=== PATIENT | male | born 1975 | race Caucasian/White ===

== ENCOUNTER 2020-07-02 09:07 | Inpatient (IN) | payer BC ==
[~2020-07-02] VITALS: Ht 182.9 cm; Wt 146.8 kg
[2020-07-02] VITALS (10 sets, daily range): BP systolic 111–132; BP diastolic 82–94
[2020-07-02 09:28] LABS: BASOPHILS # (AUTO) 0.2 X10'3 (0-0.2); BASOPHILS % (AUTO) 1.3 % (0-1); EOSINOPHILS # (AUTO) 0.1 X10'3 (0-0.9); EOSINOPHILS % (AUTO) 0.7 % (0-6); HEMATOCRIT 50.1 % (42.0-52.0); HEMOGLOBIN 17.4 g/dl (14.0-17.9); LYMPHOCYTES # (AUTO) 2.8 X10'3 (1.1-4.8); LYMPHOCYTES % (AUTO) 17.4 % (21-51); MEAN CORPUSCULAR HEMOGLOBIN 30.3 PG (27.0-31.0); MEAN CORPUSCULAR HGB CONC 34.8 g/dL (33.0-36.5); MONOCYTES # (AUTO) 1.6 X10'3 (0-0.9); MONOCYTES % (AUTO) 9.6 % (2-12); NEUTROPHILS # (AUTO) 11.6 X10'3 (1.8-7.7); PLATELET COUNT 207 X10'3 (140-440); RED BLOOD COUNT 5.76 X10'6 (4.70-6.10); RED CELL DISTRIBUTION WIDTH 13.3 % (11.5-14.5); WHITE BLOOD COUNT 16.3 X10'3 (4.5-11.0)
[2020-07-02] MEDS ORDERED: normal saline 1000ML IV soln IVB ONE (09:35)
[2020-07-02 09:43] LABS: ALANINE AMINOTRANSFERASE 34 U/L (12-78); ALBUMIN 3.9 G/DL (3.4-5.0); ALKALINE PHOSPHATASE 109 IU/L (46-116); ANION GAP 13 (8-16); ASPARTATE AMINO TRANSFERASE 16 U/L (10-37); BILIRUBIN,TOTAL 1.4 MG/DL (0.1-1.0); BLOOD UREA NITROGEN 16 MG/DL (7-18); BUN/CREATININE RATIO 14.5 (5.4-32.0); CALCIUM 8.9 MG/DL (8.5-10.1); CHLORIDE 98 MMOL/L (99-107); GLUCOSE 413 MG/DL (70-104); POTASSIUM 4.2 MMOL/L (3.5-5.1); SODIUM 134 MMOL/L (135-145); TOTAL CARBON DIOXIDE 23.1 MMOL/L (24-32); eGFR 73 ML/MIN
[2020-07-02 09:52] LABS: ETHANOL < 0.010 GM/DL (0.0-0.010); MAGNESIUM 1.9 MG/DL (1.5-2.4)
[2020-07-02] MEDS ORDERED: iohexol 350MG/ML 100ml bottle IV ONE (09:53)
[2020-07-02 09:57] LABS: D-DIMER 2.73 MG/L FEU (0-0.50); PARTIAL THROMBOPLASTIN TIME 25 SECONDS (22-32)
--- NOTE | 2020-07-02 10:41 | NUR ---
patient to ct.
--- NOTE | 2020-07-02 10:48 | NUR ---
pt is reattached to monitoring
--- NOTE | 2020-07-02 10:48 | NUR ---
pt is back from CT
[2020-07-02 10:55] LABS: URINE AMPHETAMINE SCREEN NEGATIVE (Neg); URINE BARBITUATE SCREEN NEGATIVE (Neg); URINE BENZODIAZEPINES SCREEN NEGATIVE (Neg); URINE CANNABINOID SCREEN NEGATIVE (Neg); URINE COCAINE SCREEN NEGATIVE (Neg); URINE METHADONE SCREEN NEGATIVE (Neg); URINE OPIATE SCREEN NEGATIVE (Neg); URINE PHENCYCLIDINE SCREEN NEGATIVE (Neg)
--- NOTE | 2020-07-02 11:10 | NUR ---
US at bedside
[2020-07-02 11:17] LABS: C-REACTIVE PROTEIN 4.53 MG/DL (0.0-0.5)
[2020-07-02] MEDS ORDERED: heparin 25,000 UNIT/250ml bag 250 ML IV SCH ×2 (11:20→11:25)
[2020-07-02] MEDS ORDERED: heparin 10,000 units/1 ML INJ IV ONE ×2 (11:20→11:25)
[2020-07-02] MEDS ORDERED: heparin 10,000 units/1 ML INJ IV PRN (11:25)
[2020-07-02] MEDS ORDERED: NO HOME MEDS (12:32)
--- NOTE | 2020-07-02 12:59 | NUR ---
Dr. Bajwa cancelled covid swab order per Dr. Smyth/ID doctor.
--- NOTE | 2020-07-02 13:16 | NUR ---
Dr. Lucio at bedside.
--- NOTE | 2020-07-02 13:20 | NUR ---
Dr. Rashid/IR at bedside.
--- NOTE | 2020-07-02 13:23 | NUR ---
Alan/MONY RN at bedside.Discouraged patient from getting out of bed.
--- NOTE | 2020-07-02 13:28 | NUR ---
patient assisted a hospital gown.belongings in the bag.
--- NOTE | 2020-07-02 13:29 | NUR ---
plan:patient going to IR/pulmonary angiogram,unknown time as of this moment per Modesta Rashid/IR .
[2020-07-02] MEDS ORDERED: LIDOcaine 1%/PF 5ML 10 MG/ML VIAL ONE (14:01)
[2020-07-02] MEDS ORDERED: heparin 1,000 UNITS/NS 500ml 500 ML ONE (14:02)
[2020-07-02] MEDS ORDERED: fentaNYL/PF 50MCG/1 ML 2ML syringe ONE ×2 (14:02→14:47)
[2020-07-02] MEDS ORDERED: iohexol 300mg/ml 100ml inj. ONE (14:02)
[2020-07-02] MEDS ORDERED: midazolam 2 mg/2 ml injection ONE ×2 (14:02→14:47)
--- NOTE | 2020-07-02 14:03 | NUR ---
patient going to .
--- NOTE | 2020-07-02 14:14 | NUR ---
Received report from ED nurse SANDRA Agrawal
[2020-07-02] MEDS: tPA-cathflo 2mg/2ml IV flush 4 MG in normal saline 100ml IV soln 100 ML ICATH SCH ×4 (14:15→22:55)
[2020-07-02] MEDS ORDERED: enoxaparin 50mg/0.5ml (from 3ml vial) syringe SUBCUT ONE ×2 (14:45→14:55)
[2020-07-02] MEDS ORDERED: acetaminophen 325mg tablet PO PRN ×2 (14:50)
[2020-07-02] MEDS ORDERED: sodium phosphate inj. 15 MMOL in dextrose 5%-water 250 ML IV PRN (14:50)
[2020-07-02] MEDS ORDERED: Neutra Phos packet PO PRN (14:50)
[2020-07-02] MEDS ORDERED: morphine 2 MG/ML inj. syringe IV PRN (14:50)
[2020-07-02] MEDS ORDERED: magnesium 2GM in 50ml NS 50 ML IV PRN (14:50)
[2020-07-02] MEDS ORDERED: potassium Cl 20 mEq SR tablet PO PRN ×2 (14:50)
[2020-07-02] MEDS ORDERED: morphine 4 MG/ML inj SYRINge IV PRN (14:50)
[2020-07-02] MEDS ORDERED: HYDROcodone/acetaminophen 5mg/325mg tablet PO PRN (14:50)
[2020-07-02] MEDS ORDERED: sodium phosphate inj. 30 MMOL in dextrose 5%-water 250 ML IV PRN (14:50)
[2020-07-02] MEDS ORDERED: ondansetron/PF 4mg/2ml inj IV PRN (14:50)
[2020-07-02] MEDS ORDERED: magnesium Cl slow-release 64mg tablet PO PRN (14:50)
[2020-07-02] MEDS ORDERED: enoxaparin 100mg/ml syringe SUBCUT ONE (14:50)
[2020-07-02] MEDS ORDERED: magnesium 4gm in 100ml NS 100 ML IV PRN (14:50)
[2020-07-02] MEDS ORDERED: magnesium hydroxide 30ml (MOM) UD suspension PO PRN (14:50)
[2020-07-02] MEDS ORDERED: ipratropium/albuterol 3ml nebule NEB PRN (14:50)
[2020-07-02] MEDS ORDERED: tPA-cathflo 2 MG/2 ml IV flush ONE ×2 (15:21→15:38)
[2020-07-02 15:25] LABS: LDL CHOLESTEROL 126 MG/DL (50-100)
--- NOTE | 2020-07-02 16:03 | NUR ---
Received report from Angio nurse SANDRA Orr
--- NOTE | 2020-07-02 16:20 | NUR ---
Received pt from Angio. He is alert and oriented, slightly tachycardic with HR 104. Bilateral femoral lines with tPA infusing at 0.5 mg/hr.
--- NOTE | 2020-07-02 18:23 | NUR ---
Problems reprioritized. Patient report given, questions answered & plan of care reviewed with SANDRA Fang.
--- NOTE | 2020-07-02 18:44 | NUR ---
Patient in room ICU 2042. I have received report from Ian FLORES and had the opportunity to ask questions and assume patient care.
[2020-07-02] MEDS: docusate sod 100mg capsule PO SCH (19:41)
[2020-07-02 22:08] LABS: HEMATOCRIT 45.3 % (42.0-52.0); HEMOGLOBIN 15.7 g/dl (14.0-17.9); MEAN CORPUSCULAR HEMOGLOBIN 29.9 PG (27.0-31.0); MEAN CORPUSCULAR HGB CONC 34.6 g/dL (33.0-36.5); MEAN CORPUSCULAR VOLUME 86.4 FL (78-98); MEAN PLATELET VOLUME 9.3 FL (7.4-10.4); PLATELET COUNT 167 X10'3 (140-440); RED BLOOD COUNT 5.25 X10'6 (4.70-6.10); RED CELL DISTRIBUTION WIDTH 13.4 % (11.5-14.5)
[2020-07-02] MEDS: normal saline 1000ml 1,000 ML IV SCH (22:56)
[2020-07-03] VITALS (24 sets, daily range): BP systolic 113–146; BP diastolic 80–98
--- NOTE | 2020-07-03 00:16 | NUR ---
Patient frustrated Patient has been continuously becoming for frustrated, mad, and agitated by the need to stay flat and not bend the knees. Patient has taken off his own blood pressure cuff and voiced his frustrations about all the IV lines. Patient is refusing any pain or agitation medication at this point. Will continue to monitor.
[2020-07-03] MEDS: enoxaparin 50mg/0.5ml (from 3ml vial) syringe SUBCUT SCH ×3 (03:18→20:55)
[2020-07-03] MEDS: enoxaparin 100mg/ml syringe SUBCUT SCH ×3 (03:18→20:54)
[2020-07-03] MEDS: normal saline 1000ml 1,000 ML IV SCH ×2 (04:15→16:56)
[2020-07-03] MEDS: tPA-cathflo 2mg/2ml IV flush 4 MG in normal saline 100ml IV soln 100 ML ICATH SCH ×6 (04:15→22:16)
--- NOTE | 2020-07-03 05:51 | NUR ---
Non compliance Patient is very irritated in bed, wanting to get up. Does not want the blood pressure cuff on stating "I think you have enough information". Frequency was changed to once an hour earlier in the shift and is still displeased. Patient is uncomfortable and still refuses to take any extra medications that would help him calm down and treat his pain.
--- NOTE | 2020-07-03 06:25 | NUR ---
Problems reprioritized. Patient report given, questions answered & plan of care reviewed with Janice FLORES.
--- NOTE | 2020-07-03 06:34 | NUR ---
Patient in room ICU 2042. I have received report from latisha Damon and had the opportunity to ask questions and assume patient care.
[2020-07-03] MEDS: pantoprazole 40mg Tablet.DR PO SCH (07:31)
[2020-07-03 07:32] LABS: BASOPHILS # (AUTO) 0.1 X10'3 (0-0.2); BASOPHILS % (AUTO) 0.8 % (0-1); EOSINOPHILS # (AUTO) 0.2 X10'3 (0-0.9); EOSINOPHILS % (AUTO) 1.3 % (0-6); HEMATOCRIT 45.3 % (42.0-52.0); HEMOGLOBIN 15.6 g/dl (14.0-17.9); LYMPHOCYTES # (AUTO) 2.4 X10'3 (1.1-4.8); LYMPHOCYTES % (AUTO) 19.2 % (21-51); MEAN CORPUSCULAR HEMOGLOBIN 30.1 PG (27.0-31.0); MEAN CORPUSCULAR HGB CONC 34.5 g/dL (33.0-36.5); MEAN CORPUSCULAR VOLUME 87.5 FL (78-98); MEAN PLATELET VOLUME 9.5 FL (7.4-10.4); MONOCYTES # (AUTO) 1.1 X10'3 (0-0.9); MONOCYTES % (AUTO) 9.3 % (2-12); NEUTROPHILS # (AUTO) 8.5 X10'3 (1.8-7.7); NEUTROPHILS % (AUTO) 69.4 % (42-75); PLATELET COUNT 156 X10'3 (140-440); RED BLOOD COUNT 5.18 X10'6 (4.70-6.10); RED CELL DISTRIBUTION WIDTH 13.4 % (11.5-14.5); WHITE BLOOD COUNT 12.3 X10'3 (4.5-11.0)
[2020-07-03] MEDS: HYDROcodone/acetaminophen 10/325mg tab PO PRN ×3 (07:32→19:21)
[2020-07-03 07:48] LABS: PARTIAL THROMBOPLASTIN TIME 29 SECONDS (22-32)
[2020-07-03 07:57] LABS: ALANINE AMINOTRANSFERASE 26 U/L (12-78); ALBUMIN 3.3 G/DL (3.4-5.0); ALBUMIN/GLOBULIN RATIO 0.9 (1.1-1.5); ALKALINE PHOSPHATASE 88 IU/L (46-116); ANION GAP 11 (8-16); ASPARTATE AMINO TRANSFERASE 14 U/L (10-37); BILIRUBIN,TOTAL 1.4 MG/DL (0.1-1.0); BLOOD UREA NITROGEN 14 MG/DL (7-18); BUN/CREATININE RATIO 17.9 (5.4-32.0); CALCIUM 8.3 MG/DL (8.5-10.1); CHLORIDE 104 MMOL/L (99-107); CREATININE 0.78 MG/DL (0.60-1.10); GLUCOSE 275 MG/DL (70-104); MAGNESIUM 1.8 MG/DL (1.5-2.4); PHOSPHORUS 3.6 MG/DL (2.3-4.5); SODIUM 139 MMOL/L (135-145); TOTAL CARBON DIOXIDE 23.9 MMOL/L (24-32); TOTAL PROTEIN 6.9 G/DL (6.4-8.2); eGFR > 90 ML/MIN
[2020-07-03] MEDS: docusate sod 100mg capsule PO SCH ×2 (08:41→19:21)
[2020-07-03] MEDS ORDERED: dextrose ORAL solution 15 GM/59 ML bottle PO PRN ×2 (09:45)
[2020-07-03] MEDS ORDERED: glucagon, human recombinant 1mg kit SUBCUT PRN (09:45)
[2020-07-03] MEDS ORDERED: MESSAGE TO PHARMACY PO ONE (09:45)
[2020-07-03] MEDS ORDERED: insulin Lispro (HumaLOG) vial - multi-dose SQ SCH (09:45)
[2020-07-03] MEDS ORDERED: dextrose 50%-water 50ml dispensing syringe IV PRN ×2 (09:45)
[2020-07-03 10:21] LABS: HEMOGLOBIN A1C 8.8 % (4.5-6.2)
[2020-07-03 14:07] LABS: HEMATOCRIT 44.5 % (42.0-52.0); HEMOGLOBIN 15.3 g/dl (14.0-17.9); MEAN CORPUSCULAR HEMOGLOBIN 29.7 PG (27.0-31.0); MEAN CORPUSCULAR HGB CONC 34.5 g/dL (33.0-36.5); MEAN CORPUSCULAR VOLUME 86.2 FL (78-98); MEAN PLATELET VOLUME 9.1 FL (7.4-10.4); PLATELET COUNT 151 X10'3 (140-440); RED BLOOD COUNT 5.16 X10'6 (4.70-6.10); RED CELL DISTRIBUTION WIDTH 13.2 % (11.5-14.5); WHITE BLOOD COUNT 11.9 X10'3 (4.5-11.0)
--- NOTE | 2020-07-03 18:20 | NUR ---
Patient in room ICU 2042. I have received report from SANDRA Camacho and had the opportunity to ask questions and assume patient care. Patient is A&Ox3, JAMES and is appropriate, he is to lay flat until 1900 s/p TPA in bilateral femoral sheaths.
--- NOTE | 2020-07-03 18:32 | NUR ---
Problems reprioritized. Patient report given, questions answered & plan of care reviewed with .latisha souza
--- NOTE | 2020-07-03 20:48 | NUR ---
Patient refusing Hyperglycemic intervention, does not want accu-checks or diabetic medication. I counseled him on diabetes and the health risks of elevated blood glucose.
[2020-07-03] MEDS: insulin glargine (Lantus) pen - multi-dose SQ SCH (21:00)
[2020-07-03 22:09] LABS: HEMATOCRIT 42.7 % (42.0-52.0); HEMOGLOBIN 14.8 g/dl (14.0-17.9); MEAN CORPUSCULAR HEMOGLOBIN 30.1 PG (27.0-31.0); MEAN CORPUSCULAR HGB CONC 34.7 g/dL (33.0-36.5); MEAN CORPUSCULAR VOLUME 86.7 FL (78-98); MEAN PLATELET VOLUME 8.7 FL (7.4-10.4); PLATELET COUNT 143 X10'3 (140-440); RED BLOOD COUNT 4.93 X10'6 (4.70-6.10); RED CELL DISTRIBUTION WIDTH 13.3 % (11.5-14.5); WHITE BLOOD COUNT 14.1 X10'3 (4.5-11.0)
[2020-07-04] VITALS (15 sets, daily range): BP systolic 107–155; BP diastolic 71–99
[2020-07-04] MEDS: tPA-cathflo 2mg/2ml IV flush 4 MG in normal saline 100ml IV soln 100 ML ICATH SCH ×4 (06:15→11:40)
[2020-07-04] MEDS: normal saline 1000ml 1,000 ML IV SCH (06:30)
[2020-07-04 07:40] LABS: BASOPHILS # (AUTO) 0.1 X10'3 (0-0.2); EOSINOPHILS # (AUTO) 0.2 X10'3 (0-0.9); EOSINOPHILS % (AUTO) 2.2 % (0-6); HEMATOCRIT 42.7 % (42.0-52.0); HEMOGLOBIN 14.7 g/dl (14.0-17.9); LYMPHOCYTES % (AUTO) 18.6 % (21-51); MEAN CORPUSCULAR HEMOGLOBIN 30.2 PG (27.0-31.0); MEAN CORPUSCULAR HGB CONC 34.6 g/dL (33.0-36.5); MEAN CORPUSCULAR VOLUME 87.4 FL (78-98); MEAN PLATELET VOLUME 9.1 FL (7.4-10.4); MONOCYTES # (AUTO) 1.1 X10'3 (0-0.9); MONOCYTES % (AUTO) 10.8 % (2-12); NEUTROPHILS # (AUTO) 7.1 X10'3 (1.8-7.7); NEUTROPHILS % (AUTO) 67.4 % (42-75); PLATELET COUNT 136 X10'3 (140-440); RED BLOOD COUNT 4.88 X10'6 (4.70-6.10); RED CELL DISTRIBUTION WIDTH 13.2 % (11.5-14.5); WHITE BLOOD COUNT 10.5 X10'3 (4.5-11.0)
[2020-07-04] MEDS: docusate sod 100mg capsule PO SCH ×2 (07:47→21:51)
[2020-07-04] MEDS: pantoprazole 40mg Tablet.DR PO SCH (07:47)
[2020-07-04] MEDS: enoxaparin 50mg/0.5ml (from 3ml vial) syringe SUBCUT SCH ×2 (07:51→22:10)
[2020-07-04] MEDS: enoxaparin 100mg/ml syringe SUBCUT SCH ×2 (07:52→21:52)
[2020-07-04 08:11] LABS: ALANINE AMINOTRANSFERASE 13 U/L (12-78); ALBUMIN 2.9 G/DL (3.4-5.0); ALBUMIN/GLOBULIN RATIO 0.8 (1.1-1.5); ALKALINE PHOSPHATASE 81 IU/L (46-116); ANION GAP 11 (8-16); ASPARTATE AMINO TRANSFERASE 10 U/L (10-37); BILIRUBIN,TOTAL 1.6 MG/DL (0.1-1.0); BLOOD UREA NITROGEN 11 MG/DL (7-18); BUN/CREATININE RATIO 15.7 (5.4-32.0); CALCIUM 8.4 MG/DL (8.5-10.1); CHLORIDE 105 MMOL/L (99-107); GLUCOSE 203 MG/DL (70-104); MAGNESIUM 1.8 MG/DL (1.5-2.4); PHOSPHORUS 3.5 MG/DL (2.3-4.5); POTASSIUM 3.8 MMOL/L (3.5-5.1); SODIUM 138 MMOL/L (135-145); TOTAL CARBON DIOXIDE 22.3 MMOL/L (24-32); TOTAL PROTEIN 6.5 G/DL (6.4-8.2); eGFR > 90 ML/MIN
--- NOTE | 2020-07-04 08:26 | NUR ---
Patient refusing to be treated on hyperglycemic protocol. Pt educated about risks of hyperglycemia and voices understanding, and states he wants to treat it with diet and exercise
[2020-07-04 09:00] LABS: PARTIAL THROMBOPLASTIN TIME 31 SECONDS (22-32)
--- NOTE | 2020-07-04 10:36 | NUR ---
report given to receiving RN
--- NOTE | 2020-07-04 12:15 | NUR ---
Patient in room PCU 3016. I have received report from Brenna FLORES ICU and had the opportunity to ask questions and assume patient care.
--- NOTE | 2020-07-04 13:10 | NUR ---
Patient transferred to PCU to room 3016b via wheelchair. Patient was able to transfer to bed independently. SANDRA Eller notified of arrival.
--- NOTE | 2020-07-04 13:20 | NUR ---
Pt arrived to room 3016B. Pt alert and oriented and vitals WNL. Will continue to monitor Pt.
--- NOTE | 2020-07-04 13:54 | NUR ---
DM education, A1c is 8.8%, pt has no history of DM dx or takes DM medications at home. DM not mentioned in MD notes, may need physician diagnosis prior to RD education. Addendum: 07/04/20 at 135[address] Amended: Links added.
[2020-07-04 14:15] LABS: HEMATOCRIT 42.1 % (42.0-52.0); HEMOGLOBIN 14.7 g/dl (14.0-17.9); MEAN CORPUSCULAR HEMOGLOBIN 30.2 PG (27.0-31.0); MEAN CORPUSCULAR VOLUME 86.4 FL (78-98); PLATELET COUNT 150 X10'3 (140-440); RED BLOOD COUNT 4.87 X10'6 (4.70-6.10); RED CELL DISTRIBUTION WIDTH 13.2 % (11.5-14.5); WHITE BLOOD COUNT 10.2 X10'3 (4.5-11.0)
[2020-07-04] MEDS ORDERED: bisacodyl 10mg suppository rectal RC PRN (14:50)
--- NOTE | 2020-07-04 18:00 | NUR ---
Shift Change report rec'd from Dayshift RN and pt care assumed at this time.
--- NOTE | 2020-07-04 18:20 | NUR ---
Problems reprioritized. Patient report given, questions answered & plan of care reviewed with Hans FLORES.
[2020-07-04] MEDS: insulin glargine (Lantus) pen - multi-dose SQ SCH (21:00)
--- NOTE | 2020-07-04 21:00 | NUR ---
Pt assessment: Pt A&Ox4, calm, coop, pleasant w/NAD noted. Denies CP/SOB/N/V/D or pain at this time. Request to be weighed, and using Standing Scale pt found to be at 324 lbs. Recorded in EMR. Pt stated, "I'm doing pretty good, I am down from my max weight of a little over 400lbs last year. Denies loosing weight over last 1-3 months without trying. Refusing Blood Sugar testing and/or INSULIN administrations r/t "I'm not a Diabetic, don't need that stuff." Complied w/pt wishes. TELE #9 SR-ST. Pt up AL to BR. Verbalized understanding to contact RN/Staff w/any needs/concerns.
[2020-07-04 22:17] LABS: HEMATOCRIT 40.2 % (42.0-52.0); HEMOGLOBIN 14.2 g/dl (14.0-17.9); MEAN CORPUSCULAR HEMOGLOBIN 30.4 PG (27.0-31.0); MEAN CORPUSCULAR HGB CONC 35.3 g/dL (33.0-36.5); MEAN CORPUSCULAR VOLUME 86.1 FL (78-98); MEAN PLATELET VOLUME 8.8 FL (7.4-10.4); PLATELET COUNT 138 X10'3 (140-440); RED BLOOD COUNT 4.67 X10'6 (4.70-6.10); RED CELL DISTRIBUTION WIDTH 13.6 % (11.5-14.5); WHITE BLOOD COUNT 10.6 X10'3 (4.5-11.0)
[2020-07-05 05:09] VITALS: BP 128/68
[2020-07-05 06:00] VITALS: BP 132/89
--- NOTE | 2020-07-05 06:15 | NUR ---
Patient in room PCU 3016. I have received report from Hans FLORES and had the opportunity to ask questions and assume patient care.
[2020-07-05 06:48] LABS: BASOPHILS # (AUTO) 0.1 X10'3 (0-0.2); BASOPHILS % (AUTO) 1.5 % (0-1); EOSINOPHILS # (AUTO) 0.3 X10'3 (0-0.9); EOSINOPHILS % (AUTO) 2.9 % (0-6); HEMOGLOBIN 14.4 g/dl (14.0-17.9); LYMPHOCYTES # (AUTO) 1.8 X10'3 (1.1-4.8); LYMPHOCYTES % (AUTO) 20.3 % (21-51); MEAN CORPUSCULAR HEMOGLOBIN 30.1 PG (27.0-31.0); MEAN CORPUSCULAR HGB CONC 35.1 g/dL (33.0-36.5); MEAN CORPUSCULAR VOLUME 85.9 FL (78-98); MEAN PLATELET VOLUME 8.9 FL (7.4-10.4); MONOCYTES # (AUTO) 0.9 X10'3 (0-0.9); MONOCYTES % (AUTO) 10.2 % (2-12); NEUTROPHILS # (AUTO) 5.7 X10'3 (1.8-7.7); NEUTROPHILS % (AUTO) 65.1 % (42-75); PLATELET COUNT 142 X10'3 (140-440); RED BLOOD COUNT 4.77 X10'6 (4.70-6.10); RED CELL DISTRIBUTION WIDTH 13.3 % (11.5-14.5); WHITE BLOOD COUNT 8.8 X10'3 (4.5-11.0)
[2020-07-05 07:03] LABS: PARTIAL THROMBOPLASTIN TIME 30 SECONDS (22-32)
--- NOTE | 2020-07-05 07:15 | NUR ---
Pt refused to have his finger stick for morning accu-check
[2020-07-05 07:20] LABS: ALANINE AMINOTRANSFERASE 22 U/L (12-78); ALBUMIN 2.8 G/DL (3.4-5.0); ALBUMIN/GLOBULIN RATIO 0.8 (1.1-1.5); ALKALINE PHOSPHATASE 78 IU/L (46-116); ANION GAP 7 (8-16); ASPARTATE AMINO TRANSFERASE 12 U/L (10-37); BILIRUBIN,TOTAL 1.4 MG/DL (0.1-1.0); BLOOD UREA NITROGEN 8 MG/DL (7-18); BUN/CREATININE RATIO 11.1 (5.4-32.0); CALCIUM 8.5 MG/DL (8.5-10.1); CHLORIDE 105 MMOL/L (99-107); CREATININE 0.72 MG/DL (0.60-1.10); GLUCOSE 199 MG/DL (70-104); MAGNESIUM 1.8 MG/DL (1.5-2.4); PHOSPHORUS 3.4 MG/DL (2.3-4.5); POTASSIUM 3.6 MMOL/L (3.5-5.1); SODIUM 138 MMOL/L (135-145); TOTAL CARBON DIOXIDE 25.9 MMOL/L (24-32); TOTAL PROTEIN 6.4 G/DL (6.4-8.2); eGFR > 90 ML/MIN
[2020-07-05] MEDS: pantoprazole 40mg Tablet.DR PO SCH (07:30)
[2020-07-05] MEDS: docusate sod 100mg capsule PO SCH ×2 (08:00→21:06)
[2020-07-05] MEDS: enoxaparin 100mg/ml syringe SUBCUT SCH (08:57)
[2020-07-05] MEDS: enoxaparin 50mg/0.5ml (from 3ml vial) syringe SUBCUT SCH (08:57)
[2020-07-05 11:00] VITALS: BP 140/87
--- NOTE | 2020-07-05 12:13 | NUR ---
Pt refused 1200 accu-check. Discussed with Pt the need to check blood sugar daily before meals. Pt verbalized understanding but still refused.
[2020-07-05 14:59] LABS: HEMATOCRIT 42.2 % (42.0-52.0); HEMOGLOBIN 14.8 g/dl (14.0-17.9); MEAN CORPUSCULAR HEMOGLOBIN 30.4 PG (27.0-31.0); MEAN CORPUSCULAR HGB CONC 35.1 g/dL (33.0-36.5); MEAN CORPUSCULAR VOLUME 86.6 FL (78-98); MEAN PLATELET VOLUME 8.7 FL (7.4-10.4); PLATELET COUNT 168 X10'3 (140-440); RED BLOOD COUNT 4.87 X10'6 (4.70-6.10); RED CELL DISTRIBUTION WIDTH 13.5 % (11.5-14.5)
[2020-07-05 15:00] VITALS: BP 110/72
[2020-07-05 18:00] VITALS: BP 131/94
--- NOTE | 2020-07-05 18:20 | NUR ---
Problems reprioritized. Patient report given, questions answered & plan of care reviewed with Lee FLORES.
--- NOTE | 2020-07-05 18:30 | NUR ---
Patient in room PCU 3016. I have received report from SANDRA Eller and had the opportunity to ask questions and assume patient care.
[2020-07-05] MEDS: insulin glargine (Lantus) pen - multi-dose SQ SCH (21:00)
[2020-07-05] MEDS: apixaban 5mg tablet PO SCH (21:08)
[2020-07-05 22:00] VITALS: BP 117/70
[2020-07-05 22:49] LABS: HEMATOCRIT 39.5 % (42.0-52.0); HEMOGLOBIN 13.9 g/dl (14.0-17.9); MEAN CORPUSCULAR HEMOGLOBIN 30.2 PG (27.0-31.0); MEAN CORPUSCULAR HGB CONC 35.1 g/dL (33.0-36.5); MEAN CORPUSCULAR VOLUME 86.2 FL (78-98); MEAN PLATELET VOLUME 8.9 FL (7.4-10.4); PLATELET COUNT 154 X10'3 (140-440); RED BLOOD COUNT 4.58 X10'6 (4.70-6.10); RED CELL DISTRIBUTION WIDTH 13.4 % (11.5-14.5); WHITE BLOOD COUNT 9.3 X10'3 (4.5-11.0)
[2020-07-06 02:00] VITALS: BP 122/70
[2020-07-06 06:00] VITALS: BP 135/94
--- NOTE | 2020-07-06 06:30 | NUR ---
Patient in room PCU 3016. I have received report from Lee and had the opportunity to ask questions and assume patient care.
--- NOTE | 2020-07-06 06:51 | NUR ---
Problems reprioritized. Patient report given, questions answered & plan of care reviewed with SANDRA Eller. Patient resting in bed, no signs of distress. Safety measures in place. Bed in low and locked position. Call light and personal items within reach. Will continue to monitor.
[2020-07-06] MEDS: pantoprazole 40mg Tablet.DR PO SCH (07:26)
[2020-07-06] MEDS: apixaban 5mg tablet PO SCH (07:26)
[2020-07-06] MEDS: docusate sod 100mg capsule PO SCH (07:29)
[2020-07-06 07:37] LABS: BASOPHILS # (AUTO) 0.1 X10'3 (0-0.2); EOSINOPHILS # (AUTO) 0.3 X10'3 (0-0.9); EOSINOPHILS % (AUTO) 3.3 % (0-6); HEMOGLOBIN 14.9 g/dl (14.0-17.9); LYMPHOCYTES # (AUTO) 1.7 X10'3 (1.1-4.8); LYMPHOCYTES % (AUTO) 19.1 % (21-51); MEAN CORPUSCULAR HEMOGLOBIN 30.4 PG (27.0-31.0); MEAN CORPUSCULAR HGB CONC 35.4 g/dL (33.0-36.5); MEAN CORPUSCULAR VOLUME 85.8 FL (78-98); MEAN PLATELET VOLUME 8.9 FL (7.4-10.4); MONOCYTES # (AUTO) 0.8 X10'3 (0-0.9); MONOCYTES % (AUTO) 8.6 % (2-12); NEUTROPHILS # (AUTO) 6.2 X10'3 (1.8-7.7); PLATELET COUNT 173 X10'3 (140-440); RED CELL DISTRIBUTION WIDTH 13.7 % (11.5-14.5); WHITE BLOOD COUNT 9.1 X10'3 (4.5-11.0)
[2020-07-06 07:43] LABS: PARTIAL THROMBOPLASTIN TIME 28 SECONDS (22-32)
[2020-07-06 07:58] LABS: ALANINE AMINOTRANSFERASE 32 U/L (12-78); ALBUMIN 3.4 G/DL (3.4-5.0); ALBUMIN/GLOBULIN RATIO 0.9 (1.1-1.5); ALKALINE PHOSPHATASE 88 IU/L (46-116); ANION GAP 9 (8-16); ASPARTATE AMINO TRANSFERASE 22 U/L (10-37); BILIRUBIN,TOTAL 1.3 MG/DL (0.1-1.0); BLOOD UREA NITROGEN 7 MG/DL (7-18); BUN/CREATININE RATIO 9.2 (5.4-32.0); CALCIUM 8.8 MG/DL (8.5-10.1); CHLORIDE 102 MMOL/L (99-107); CREATININE 0.76 MG/DL (0.60-1.10); GLUCOSE 208 MG/DL (70-104); MAGNESIUM 1.8 MG/DL (1.5-2.4); PHOSPHORUS 3.5 MG/DL (2.3-4.5); POTASSIUM 3.9 MMOL/L (3.5-5.1); SODIUM 138 MMOL/L (135-145); TOTAL CARBON DIOXIDE 26.8 MMOL/L (24-32); TOTAL PROTEIN 7.3 G/DL (6.4-8.2); eGFR > 90 ML/MIN
[2020-07-06] MEDS ORDERED: APIX5TAB3 PO (11:13)
--- NOTE | 2020-07-06 12:10 | NUR ---
Pt D/C'd home - IV and tele #9 was removed - pt tolerated well. Pt alert and oriented and VS WNL. Per Neha Cosme: pt is stable for discharge. All d/c paperwork reviewed with patient; allowed patient to ask questions concerning D/C and then answered them, patient verbalized understanding. New prescriptions sent to [facility]. Pt belongings gathered and sent with patient. Pt transferred downstairs to car via wheelchair. Pt drove himself home. Addendum: 07/06/20 at 1224 by Rafita Middleton RN Pt D/C'd home - IV and tele #9 was removed - pt tolerated well. Pt alert and oriented and VS WNL. Per Neha Cosme: pt is stable for discharge. All d/c paperwork reviewed with patient; allowed patient to ask questions concerning D/C and then answered them, patient verbalized understanding. New prescriptions sent to [facility]. Pt does not have PCP - information regarding PCP's currently accepting new patients were including in D/C packet. Pt stated he will call within 3 weeks to make an appointment for follow up. Pt belongings gathered and sent with patient. Pt transferred downstairs to car via wheelchair. Pt drove himself home.
[2020-07-12] MEDS ORDERED: apixaban 5mg tablet PO SCH (20:00)
== END 2020-07-06 12:05 | disposition home or self-care (01) | DRG 176 ==
LOC: ER 09:08 → ED HOLD 14:49 → ICU 2S 16:16 → PCU 3S 07-04 13:33
PROVIDERS: ADMIT Internal Medicine Critical Care Medicine; ATTEND Internal Medicine Critical Care Medicine
PROC: BW241ZZ Computerized Tomography (CT Scan) of Chest and Abdomen using Low Osmolar Contrast (ICD-10-PCS; 2020-07-02)
PROC: 3E04317 Introduction of Other Thrombolytic into Central Vein, Percutaneous Approach (ICD-10-PCS; principal; 2020-07-03)
DX: I26.99 Other pulmonary embolism without acute cor pulmonale (principal); Z68.41 Body mass index [BMI] 40.0-44.9, adult; M54.9 Dorsalgia, unspecified; G89.29 Other chronic pain; R94.31 Abnormal electrocardiogram [ECG] [EKG]; E11.9 Type 2 diabetes mellitus without complications; E66.01 Morbid (severe) obesity due to excess calories; F17.200 Nicotine dependence, unspecified, uncomplicated
CPT/HCPCS: 36013; 36014; 36415; 37211; 37214; 71045; 71275; 75743; 76937; 80053; 80305; 80320; 82948; 83036; 83721; 83735; 83880; 84100; 84145; 84439; 84443; 84484; 85025; 85027; 85379; 85384; 85610; 85730; 86140; 87081; 93005; 93306; 93308; 93970; 94760; 96361; 96374; 96375; 99152; 99153; 99291; 99292; C1751; C1769; C1894; G0378; J1644; J1650; J1815; J2250; J2997; J3010; J7030; Q9967